=== PATIENT | male | born 1995 | race Hispanic/Latino ===

== ENCOUNTER 2017-11-10 21:13 | Emergency (ER) | payer SELFPAY ==
[2017-11-10 21:31] VITALS: BP 123/65; PULSE 78; TEMP 98.6; O2SAT 99
--- NOTE | 2017-11-10 22:12 | C.PDOC ---
History Of Present Illness 21 yo male come in for evaluation of Left lower leg and ankle contusion developed yesterday after sustained twisting injury. Pt reports, pain is localized over injury side, worse with ambulation. Otherwise, denies obvious deformity, weakness, sensory or vascular deficits to injured leg. Ambulate to ED. Time Seen by Provider: 11/10/17 21:32 Chief Complaint (Nursing): Lower Extremity Problem/Injury History Per: Patient Onset/Duration Of Symptoms: Gradual Past Medical History Reviewed: Historical Data, Nursing Documentation, Vital Signs Vital Signs: Last Vital Signs Temp 98.6 F 11/10/17 21:28 Pulse 78 11/10/17 21:28 Resp 16 11/10/17 21:28 BP 123/65 11/10/17 21:28 Pulse Ox 99 11/10/17 21:28 - Medical History PMH: No Chronic Diseases Family History: States: No Known Family Hx - Social History Hx Alcohol Use: Yes Hx Substance Use: No Review Of Systems Except As Marked, All Systems Reviewed And Found Negative. Constitutional: Negative for: Fever Musculoskeletal: Positive for: Leg Pain, Foot Pain Skin: Negative for: Rash, Bruising Neurological: Negative for: Weakness, Numbness Physical Exam - Physical Exam Appears: Well, Non-toxic, No Acute Distress Skin: Normal Color, Warm, No Rash Head: Atraumatic, Normacephalic Extremity: Normal ROM (Left ankle), Tenderness (anterior aspect left ankle, anterior distal tibial. No palpable deformity.), No Calf Tenderness, Capillary Refill (less than 2sec to left foot), No Deformity, No Swelling Neurological/Psych: Oriented x3, Normal Speech, Normal Motor, Normal Sensation, Normal Reflexes ED Course And Treatment O2 Sat by Pulse Oximetry: 99 - Other Rad Left ankle and tib/fib X-Ray: Interpreted by Me, Viewed By Me Interpretation: (-) acute fx or dislocation Progress Note: On re-evaluation, pt is afebrile, hemodynamicaly stable. head: AT/NC. LLE: mild tenderness anterior aspect Left ankle and distal tib/fib. NO palpable deformity, no skin changes. FAROM, no eurovascular deficits. neuorlgicaly intact. Imaging review and appears normal. Rick wrap applied to Left ankle. Air cast applied to Left ankle. Crutches given. Pt advised and ref. to f/u with Podiatry in 2-3 days for re-eval. return if any new changes. Disposition Counseled Patient/Family Regarding: Studies Performed, Diagnosis, Need For Followup - Disposition Referrals: [facility] [Outside] Niels Tomas MD [Staff Provider] - Disposition: HOME/ ROUTINE Disposition Time: 22:00 Condition: STABLE Additional Instructions: Light duty RICE-REST,ICE,COMPRESSION,ELEVATION Follow up with PMD, Orthopedist in 2-3 days for re-evaluation. return to ED if any worsening or new changes. Instructions: Contusion (DC), Ankle Sprain - Clinical Impression Clinical Impression: Contusion, lower leg, Ankle sprain
[2017-11-10 23:12] VITALS: RESP 20
--- NOTE | 2017-11-11 11:28 | RAD ---
PROCEDURE: Left Ankle Radiographs. HISTORY: injury COMPARISON: None FINDINGS: BONES: No acute fracture or destructive bony lesion identified. JOINTS: Normal. No osteoarthritis. Ankle mortise maintained. Talar dome intact SOFT TISSUES: Normal. OTHER FINDINGS: None. IMPRESSION: Unremarkable left ankle radiographs.
--- NOTE | 2017-11-11 11:29 | RAD ---
PROCEDURE: Radiographs of the left tibia and fibula. HISTORY: injury COMPARISON: None available. TECHNIQUE: Frontal and lateral views obtained. FINDINGS: BONES: No acute fracture or destructive bony lesion identified. JOINT SPACES: Unremarkable. OTHER FINDINGS: None. IMPRESSION: Unremarkable radiographs of the left tibia and fibula.
== END 2017-11-10 23:11 | disposition home or self-care (01) ==
LOC: C.ER 21:13
DX: S93.402A Sprain of unspecified ligament of left ankle, initial encounter (principal); S90.02XA Contusion of left ankle, initial encounter; X50.1XXA Overexertion from prolonged static or awkward postures, initial encounter